=== PATIENT | male | born 2000 | race African-American/Black ===

== ENCOUNTER 2020-08-25 13:17 | Emergency (ER) | payer SELFPAY ==
--- NOTE | ~2020-08-25 | XR_ITS ---
EXAMINATION: XR foot RT min 3V DATE: 08/25/2020 14:03 INDICATION: Right foot pain TECHNIQUE: Dorsoplantar, lateral, and 2 oblique views of the right foot were obtained. COMPARISON: None. FINDINGS: There is no fracture, dislocation, or subluxation. The bones, soft tissues, and joint space s are normal. IMPRESSION: 1. No acute osseous abnormality. Reviewed, dictated and finalized at location A. [facility]
[2020-08-25 13:39] VITALS: BP 144/101; PULSE 75; RESP 16; O2SAT 100
--- NOTE | 2020-08-25 14:59 | ED.GENADULT ---
HPI - General Adult General Chief complaint: Extremity Injury, Lower Stated complaint: right foot injury Time Seen by Provider: 08/25/20 13:47 Source: patient Mode of arrival: ambulatory Limitations: no limitations History of Present Illness HPI narrative: Patient is a 20-year-old male who presents to emergency department for evaluation of right foot pain patient notes he struck the foot yesterday has since had aching pain throughout the forefoot worse with the great toe patient has not been seen for this complaint has not taken anything for his symptoms presents per private vehicle in no distress Related Data Home Medications Medication Instructions Recorded Confirmed No Home Medications 08/25/20 08/25/20 Allergies Allergy/AdvReac Type Severity Reaction Status Date / Time No Known Allergies Allergy Verified 08/25/20 13:46 Review of Systems Review of Systems: All systems reviewed & are unremarkable except as noted in HPI and below PMFSH Social History Social History (Updated 08/25/20 @ 15:01 by Esau Cantor PA-C) Smoking status: Never smoker Gender identity (if verbalized by the patient): Male Exam Narrative: Exam Narrative: GENERAL: Well-appearing, well-nourished, and in no acute distress. HEAD: Normocephalic, atraumatic. EYES: PERRLA and EOMI. ENT: Nares clear, no rhinorrhea or epistaxis. Mucous membranes moist. EXTREMITIES: Normal range of motion. No edema. SKIN: Warm, dry, no rash. NEURO: No focal deficits. Alert and oriented x3. Cranial nerves II through XII grossly intact. Neurovascularly intact PSYCH: Normal mood and affect. Course Course Emergency Course: Patient in the room no distress aware of case findings treatment plan diagnosis agreeing to follow-up as directed or to return if symptoms worsen or concerns Vital Signs Vital signs: Vital Signs Pulse Rate 75 08/25/20 13:39 Respiratory Rate 16 08/25/20 13:39 Blood Pressure 144/101 H 08/25/20 13:39 Pulse Oximetry 100 08/25/20 13:39 Pulse Rate 75 08/25/20 13:39 Respiratory Rate 16 08/25/20 13:39 Blood Pressure 144/101 H 08/25/20 13:39 Pulse Oximetry 100 08/25/20 13:39 Medical Decision Making MDM Narrative Medical decision making narrative: Patients injury or pain is consistent with musculoskeletal etiology. No signs of neurological or vascular compromise on exam. Compartments and tisues are soft without signs of compartment syndrome. Pain is felt appropriate for further evaluation on an outpatient basis. Vital Signs Vital Signs: Vital Signs Pulse Rate 75 08/25/20 13:39 Respiratory Rate 16 08/25/20 13:39 Blood Pressure 144/101 H 08/25/20 13:39 Pulse Oximetry 100 08/25/20 13:39 Pulse Rate 75 08/25/20 13:39 Respiratory Rate 16 08/25/20 13:39 Blood Pressure 144/101 H 08/25/20 13:39 Pulse Oximetry 100 08/25/20 13:39 Imaging Data Radiologist's impression: ITS Impressions Foot X-Ray 08/25/20 14:05 IMPRESSION: 1. No acute osseous abnormality. Discharge Plan Discharge Clinical Impression: Contusion of foot, right Patient Disposition: Home, Self-Care Condition: Stable Instructions: Antibiotic Form, Foot Contusion (ED) Additional Instructions: Wear Mike wrap with limited weight on the affected leg until able to bear weight without pain. Ice and elevate extremity. Pain medication as needed and directed. Follow up with your doctor for further care in the next 7 days. Return if symptoms worsen or concerns Prescriptions: No Action No Home Medications RF: 0 Follow-up/Referrals: PHYSICIAN,[employer] SUPERVISOR [Primary Care Provider] - Chela Campbell, [Physician] - Stand Alone Forms: Work/School Release IP
== END 2020-08-25 15:20 | disposition home or self-care (01) ==
PROVIDERS: Emergency Provider Emergency Medicine
DX: S90.31XA Contusion of right foot, initial encounter (principal); W22.8XXA Striking against or struck by other objects, initial encounter
CPT/HCPCS: 73630; 99283